=== PATIENT | female | born 1960 | race Caucasian/White ===

== ENCOUNTER → 2017-07-16 | Outpatient (CLI) | payer OTHER ==
--- NOTE | 2017-07-16 16:02 | US ---
EXAMINATION TYPE: US carotid duplex BILAT DATE OF EXAM: 07/16/2017 COMPARISON: US 2009 CLINICAL HISTORY: Carotid Bruit R01.1, I35.1 Nonrheumatic. Bruit, pt has no complaints at this time EXAM MEASUREMENTS: RIGHT: Peak Systolic Velocity (PSV) cm/sec ----- Right CCA: 100.2 ----- Right ICA: 75.7 ----- Right ECA: 85.7 ICA/CCA ratio: 0.8 RIGHT: End Diastole cm/sec ----- Right CCA: 27.5 ----- Right ICA: 24.1 ----- Right ECA: 14.4 LEFT: Peak Systolic Velocity (PSV) cm/sec ----- Left CCA: 85.6 ----- Left ICA: 69.8 ----- Left ECA: 112.5 ICA/CCA ratio: 0.8 LEFT: End Diastole cm/sec ----- Left CCA: 18.6 ----- Left ICA: 18.0 ----- Left ECA: 16.7 VERTEBRALS (direction of flow): Right Vertebral: Antegrade Left Vertebral: Antegrade Rhythm: Normal No significant stenosis seen IMPRESSION: No evidence of hemodynamically significant stenosis within either carotid arterial syste m.
--- NOTE | 2017-07-17 11:30 | ECHOF ---
Referral Reason:Carotid Bruit R01.1, I35.1 Nonrheumatic MEASUREMENTS -------- HEIGHT: 162.6 cm WEIGHT: 72.6 kg BP: 199/110 IVSd: 1.1 cm (0.6 - 1.1) LVIDd: 4.3 cm (3.9 - 5.3) LVPWd: 1.1 cm (0.6 - 1.1) IVSs: 1.4 cm LVIDs: 2.7 cm LVPWs: 1.4 cm LAESV Index (A-L): 21.86 ml/m Ao Diam: 2.7 cm (2.0 - 3.7) AV Cusp: 1.6 cm (1.5 - 2.6) LA Diam: 3.0 cm (2.7 - 3.8) MV E Marv: 0.93 m/s MV DecT: 269 ms MV A Marv: 0.91 m/s MV E/A Ratio: 1.02 RAP: 5.00 mmHg RVSP: 9.13 mmHg FINDINGS -------- Sinus rhythm. This was a technically adequate study. The left ventricular size is normal. There is borderline concentric left ventricular hypertrophy. Overall left ventricular systolic function is normal with, an EF between 55 - 60 %. The right ventricle is normal in size and function. Normal LA size by volume 22+/-6 ml/m2. The right atrium is normal in size. The aortic valve is trileaflet, and appears structurally normal. No aortic stenosis or regurgitation. The mitral valve is normal. Mild mitral regurgitation is present. Trace tricuspid regurgitation present. Right ventricular systolic pressure is normal at < 35 mmHg. There is no evidence of pulmonary hypertension. There is no pulmonic regurgitation present. The aortic root size is normal. Normal inferior vena cava with normal inspiratory collapse consistent with estimated right atrial pre ssure of 5 mmHg. There is no pericardial effusion. CONCLUSIONS -------- 1. Sinus rhythm. 2. This was a technically adequate study. 3. There is borderline concentric left ventricular hypertrophy. 4. Overall left ventricular systolic function is normal with, an EF between 55 - 60 %. 5. Normal LA size by volume 22+/-6 ml/m2. 6. The aortic valve is trileaflet, and appears structurally normal. No aortic stenosis or regurgitati on. 7. Mild mitral regurgitation is present. 8. Trace tricuspid regurgitation present. 9. Right ventricular systolic pressure is normal at < 35 mmHg. 10. There is no pulmonic regurgitation present. 11. The aortic root size is normal. 12. There is no pericardial effusion. DATA ENTRY MACHINE OPERATOR: Ezequiel Wagner RDCS
== END | disposition home or self-care (01) ==
LOC: RADUSMAIN 14:54
PROVIDERS: ATTEND Internal Medicine
DX: I08.1 Rheumatic disorders of both mitral and tricuspid valves (principal); R01.1 Cardiac murmur, unspecified
CPT/HCPCS: 93306; 93880

== ENCOUNTER → 2017-09-13 | Outpatient (CLI) | payer OTHER ==
--- NOTE | 2017-09-13 07:58 | US ---
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 Nausea/bloating after eating EXAM MEASUREMENTS: Liver Length: 13.8 cm Gallbladder Wall: 0.2 cm CBD: 0.5 cm Spleen: 8.5 cm Right Kidney: 9.1 x 4.6 x 6.3 cm Left Kidney: 9.7 x 5.2 x 5.9 cm Pancreas: Body appears normal. Portions of the head and tail of pancreas are obscured by bowel gas. Liver: homogeneous Gallbladder: No stones seen Evidence for sonographic Culp's sign: no CBD: wnl Spleen: wnl Right Kidney: 2.7 x 2.4 x 2.4 cm cyst lower pole Left Kidney: No hydronephrosis or masses seen Upper IVC: wnl Abd Aorta: wnl IMPRESSION: 1. Right renal cyst. 2. No acute ultrasound abnormality
== END | disposition home or self-care (01) ==
LOC: RADUSWWP 06:57
PROVIDERS: ATTEND Internal Medicine
DX: N28.1 Cyst of kidney, acquired (principal); I10 Essential (primary) hypertension
CPT/HCPCS: 76700

== ENCOUNTER → 2018-10-30 | Outpatient (CLI) | payer OTHER ==
--- NOTE | 2018-10-30 16:58 | US ---
EXAMINATION TYPE: US transvaginal DATE OF EXAM: 10/30/2018 COMPARISON: US CLINICAL HISTORY: N95.0 Post menopausal bleeding. Pt states episode of light vaginal bleeding 2 weeks ago, LLQ pain TECHNIQUE: Transvaginal (TV). Transvaginal sonographic images of the pelvis were acquired. Date of LMP: Age 48 EXAM MEASUREMENTS: Uterus: 7.2 x 2.8 x 4.4 cm Endometrial Stripe: 0.7 cm Right Ovary: 2.4 x 1.2 x 1.8 cm Left Ovary: 1.6 x 0.9 x 1.4 cm cm 1. Uterus: Anteverted Heterogenous, probable fibroid= 2.0 x 1.7 x 2.0 cm 2. Endometrium: Ill-defined borders, possibly thickened for having bleeding 3. Right Ovary: wnl 4. Left Ovary: wnl 5. Bilateral Adnexa: wnl 6. Posterior cul-de-sac: wnl IMPRESSION: 1. Hypoechoic fibroid within the fundus of the uterus.
== END | disposition home or self-care (01) ==
LOC: RADUSWWP 12:15
PROVIDERS: ATTEND Internal Medicine Geriatric Medicine
DX: D25.9 Leiomyoma of uterus, unspecified (principal)
CPT/HCPCS: 76830